=== PATIENT | female | born 1960 | race Caucasian/White ===

== ENCOUNTER 2021-07-20 13:20 | Outpatient (CLI) | payer BC | END 2021-07-20 13:21 | disposition home or self-care (01) | LOC: CSHMAMMO 13:20 | PROVIDERS: ATTEND Student in an Organized Health Care Education/Training Program | DX: N63.15 Unspecified lump in the right breast, overlapping quadrants (principal) | CPT/HCPCS: 77066; G0279 ==

== ENCOUNTER 2021-08-03 15:30 | Outpatient (CLI) | payer BC ==
[2021-08-03 16:33] LABS: Hemoglobin 13.8 g/dL (12.0-15.5); Mean Corpuscular HGB CONC 32.9 g/dL (32.0-36.0); Mean Corpuscular Hemoglobin 29.1 pg (27.0-33.0); Mean Corpuscular Volume 88.4 fl (81.6-98.3); Mean Platelet Volume 10.4 fl (7.4-10.4); Platelet Count 248 10x3/uL (150-450); RBC Distribution Width 12.5 % (11.5-14.5); Red Blood Cell (RBC) Count 4.75 10x6/uL (3.90-5.03); White Blood Cell (WBC) Count 6.7 10x3/uL (3.5-10.5)
[2021-08-03 16:51] LABS: ALT (SGPT) 13 U/L (8-55); AST (SGOT) 17 U/L (5-34); Albumin 4.6 g/dL (3.5-5.0); Alkaline Phosphatase 81 U/L (40-110); Anion Gap 14 mmol/L (10-20); BUN (Urea Nitrogen) 9 mg/dL (9.8-20.1); Bilirubin, Total 0.5 mg/dL (0.2-1.2); Calc. Creatinine Clearance 0 mL/min (70-130); Calcium 9.5 mg/dL (7.8-10.44); Carbon Dioxide 26 mmol/L (22-29); Chloride 104 mmol/L (98-107); Globulin 2.4 g/dL (2.4-3.5); Glucose 94 mg/dL (70-105); Potassium 4.8 mmol/L (3.5-5.1); Sodium 139 mmol/L (136-145)
[2021-08-04 08:05] LABS: SARS-CoV-2 PCR by NAA Not Detected (NotDetected)
== END 2021-08-03 15:31 | disposition home or self-care (01) ==
LOC: CSHLAB 15:30
PROVIDERS: ATTEND Surgery
DX: Z01.812 Encounter for preprocedural laboratory examination (principal); Z20.822 Contact with and (suspected) exposure to COVID-19
CPT/HCPCS: 80053; 85027; U0003; U0005

== ENCOUNTER 2021-08-04 06:28 | Day surgery (SDC) | payer BC ==
[2021-08-03 14:52] VITALS: BMI 22.4
[2021-08-04] MEDS ORDERED: Lidocaine 1% MPF 2 ML VIAL ONE (08:17)
[2021-08-04] MEDS ORDERED: Fentanyl 100 MCG/2 ML VIAL ONE (08:27)
[2021-08-04] MEDS ORDERED: PROPOFOL 0 ML ONE (08:27)
[2021-08-04] MEDS ORDERED: Ondansetron PF 4 MG/2 ML Vial ONE ×2 (08:29)
[2021-08-04] MEDS ORDERED: Ketorolac Tromethamine 30 MG/ML VIAL ONE (08:29)
[2021-08-04] MEDS ORDERED: Lidocaine 2% PF 5 ML VIAL ONE (08:29)
[2021-08-04] MEDS ORDERED: Bupivacaine PF 0.5% 30 ML VIAL ONE (08:33)
[2021-08-04] MEDS ORDERED: EPINEPHrine 1 MG/ML AMP ONE (08:33)
[2021-08-04] MEDS ORDERED: CEFAZOLIN 1 GM VIAL ONE (08:33)
[2021-08-04] MEDS ORDERED: PROPOFOL 20 ML ONE (08:49)
[2021-08-04] MEDS ORDERED: ePHEDrine Sulfate 50 MG/10 ML VIAL ONE (08:59)
[2021-08-04] MEDS ORDERED: HYDROcodone/Acetaminophen 5/325 mg Tablet PO PRN (09:41)
[2021-08-04] MEDS ORDERED: Acetaminophen 325 MG TAB PO PRN (09:41)
== END 2021-08-04 10:15 | disposition home or self-care (01) ==
LOC: CSHSDC 06:28
PROVIDERS: ATTEND Surgery
PROC: 02HV33Z Insertion of Infusion Device into Superior Vena Cava, Percutaneous Approach (ICD-10-PCS; principal; 2021-08-04)
PROC: 0JH60WZ Insertion of Totally Implantable Vascular Access Device into Chest Subcutaneous Tissue and Fascia, Open Approach (ICD-10-PCS; principal; 2021-08-04)
DX: C50.911 Malignant neoplasm of unspecified site of right female breast (principal); C77.9 Secondary and unspecified malignant neoplasm of lymph node, unspecified; Z17.1 Estrogen receptor negative status [ER-]; Z87.891 Personal history of nicotine dependence; Z88.0 Allergy status to penicillin
CPT/HCPCS: C1788; J0171; J0690; J1642; J1885; J2001; J2405; J2704; J3010; J3490; S0020

== ENCOUNTER 2022-03-16 07:33 | Day surgery (SDC) | payer BC ==
[2022-03-15 08:55] VITALS: BMI 19.3
[2022-03-16] MEDS ORDERED: Lidocaine 1% MPF 2 ML VIAL ONE (08:55)
[2022-03-16] MEDS ORDERED: Bupivacaine PF 0.5% 30 ML VIAL ONE (10:00)
[2022-03-16] MEDS ORDERED: EPINEPHrine 1 MG/ML AMP ONE (10:00)
[2022-03-16] MEDS ORDERED: Clindamycin/D5W 600 mg/50 ml Premix Bag ONE (10:22)
[2022-03-16] MEDS ORDERED: Methylene Blue 50 MG/10 ML AMPUL ONE (10:42)
[2022-03-16] MEDS ORDERED: Isosulfan Blue 50 MG/5 ML VIAL ONE (11:08)
[2022-03-16] MEDS ORDERED: HYDROcodone/Acetaminophen 5/325 mg Tablet PO PRN (12:49)
[2022-03-16] MEDS ORDERED: HYDROcodone/Acetaminophen 5/325 mg Tablet ONE (13:47)
== END 2022-03-16 14:30 | disposition home or self-care (01) ==
LOC: CSHSDC 07:33
PROVIDERS: ATTEND Surgery
PROC: 0HTT0ZZ Resection of Right Breast, Open Approach (ICD-10-PCS; principal; 2022-03-16)
DX: C50.911 Malignant neoplasm of unspecified site of right female breast (principal); N60.31 Fibrosclerosis of right breast; N60.81 Other benign mammary dysplasias of right breast; N60.41 Mammary duct ectasia of right breast; I10 Essential (primary) hypertension; Z87.891 Personal history of nicotine dependence
CPT/HCPCS: 78195; 88307; 88341; 88342; A9541; C1713; J0171; J1100; J2250; J2405; J2704; J3010; J3490; Q9968; S0020

== ENCOUNTER 2022-12-06 08:41 | Outpatient (CLI) | payer BC | END 2022-12-06 08:42 | disposition home or self-care (01) | LOC: CSHMAMMO 08:41 | PROVIDERS: ATTEND Internal Medicine Hematology & Oncology | DX: C50.111 Malignant neoplasm of central portion of right female breast (principal) | CPT/HCPCS: G0279 ==

== ENCOUNTER 2023-12-21 13:03 | Outpatient (CLI) | payer BC | END 2023-12-21 13:04 | disposition home or self-care (01) | LOC: CSHMAMMO 13:03 | PROVIDERS: ATTEND Surgery | DX: Z08 Encounter for follow-up examination after completed treatment for malignant neoplasm (principal); Z85.3 Personal history of malignant neoplasm of breast | CPT/HCPCS: G0279 ==